=== PATIENT | female | born 1980 | race Caucasian/White ===

== ENCOUNTER 2019-04-16 18:44 | Emergency (ER) | payer OTHER ==
[~2019-04-16] VITALS: Ht 152.4 cm; Wt 54.4 kg
[~2019-04-16 18:44] MED LIST: FOLIC ACID1 MG PO; IRON1 TAB PO; PRENATAL CAPLE1 EACH PO
[2019-04-17] MEDS ORDERED: ZOFRAN4 MG PO (02:53)
[2019-04-17] MEDS ORDERED: PEPCID40 MG PO (02:53)
[2019-04-17] MEDS ORDERED: INTESTINEX680 M1 PO ×2 (02:54)
== END 2019-04-17 03:13 | disposition home or self-care (01) ==
LOC: ER 18:44
DX: K52.9 Noninfective gastroenteritis and colitis, unspecified (principal)

== ENCOUNTER 2024-12-31 10:56 | Emergency (ER) | payer OTHER ==
[~2024-12-31] VITALS: Ht 152.4 cm; Wt 61.2 kg
[~2024-12-31 10:56] MED LIST changes: +INTESTINEX680 M1 PO; +PEPCID40 MG PO; +ZOFRAN4 MG PO
[2024-12-31] MEDS ORDERED: KAPSPARGO SPRIN25 MG PO (11:38)
[2024-12-31] MEDS ORDERED: 0.9 % SODIUM CHLORIDE 1,000 ML IV STA (11:48)
[2024-12-31 12:40] LABS: BASO % 0.2 % (0.1-1.2); EOS # 0.02 (0.04-0.54); EOS % 0.3 % (0.7-7.0); LYMPH # 0.61 (1.18-3.74); LYMPH % 10.1 % (19.3-53.1); MEAN PLATELET VOLUME 10.70 fl (9.4-12.4); MONO # 0.33 (0.24-0.82); MONO % 5.5 % (4.7-12.5); NEUT # 5.03 (1.56-6.13); NEUT % 83.7 % (34.0-71.1); RED CELL DISTRIBUTION WIDTH 14.7 % (11.6-14.4)
[2024-12-31 14:19] LABS: BUN CREA RATIO 23.0 (7.0-25.0); CREATININE SERUM 0.73 mg/dL (0.55-1.02); GFR 86.21; GLUCOSE FASTING 87.0 mg/dL (65-100); OSMOLALITY SERUM 277.0 MOSM/KG (275-295)
[2024-12-31 16:19] LABS: URINE APPEARANCE Cloudy; URINE BILIRRUBIN Negative (NEGATIVE); URINE BLOOD Negative; URINE COLOR Dark Yellow; URINE GLUCOSE Negative (NEGATIVE); URINE LEUKOCYTE Negative; URINE NITRATE Negative; URINE PROTEIN 30 (NEGATIVE); URINE UROBILINOGEN 1.0 E.U./dl
[2024-12-31 16:23] LABS: URINE BACTERIA 2797.1 uL (0.0-1933); URINE EPITHELIAL CELLS 157.1 uL (0.0-38.8); URINE RBC 41.6 uL (0.0-20.8); URINE WBC 33.3 uL (0.0-23.2)
[2024-12-31 16:43] LABS: URINE CAST 0.43 uL (0.0-1.40); URINE KETONE >=160 (NEGATIVE)
[2024-12-31] MEDS ORDERED: KETOROLAC TROMETHAMINE 30 MG VIAL IV STA (18:08)
[2024-12-31] MEDS ORDERED: HYOSCYAMINE SULFATE 0.125 MG TAB.SUBL SL ONE (18:15)
== END 2024-12-31 21:09 | disposition home or self-care (01) ==
LOC: ER 10:56
PROVIDERS: Emergency Medicine
DX: K52.9 Noninfective gastroenteritis and colitis, unspecified (principal); R10.9 Unspecified abdominal pain